=== PATIENT | male | born 1960 | race Caucasian/White ===

== ENCOUNTER 2019-01-13 11:37 | Inpatient (IN) | payer OTHER ==
[~2019-01-13] VITALS: Ht 182.9 cm; Wt 110.9 kg
[~2019-01-13 11:37] MED LIST: ALTACE10 MG PO; ASPIR-LOW81 MG PO; CHLORDIAZEPOXID25 MG PO; COREG25 MG PO; EZETIMIBE10 MG PO; FISH OIL 1,0001 EAC5 PO; FLONASE ALLERG9.9 ML NAS; FOLIC ACID1 MG PO; ISOSORBIDE MONO30 MG PO; K-PHOS NEUTRAL T1 EA PO; ONE DAILY MAXI1 EAC1 PO; PRAVASTATIN SOD80 MG PO; PRILOSEC OTC20 MG PO; THIAMINE HCL100 MG PO; TRICOR145 MG PO; VITAMIN D35000 UNIT PO; ZYRTEC10 MG PO
[2019-01-13] MEDS ORDERED: NALTREXONE HCL50 MG PO (11:49)
[2019-01-13] MEDS ORDERED: ULORIC40 MG PO (11:50)
[2019-01-13] MEDS ORDERED: FISH OIL 1,0001 EAC2 (11:51)
[2019-01-13] MEDS ORDERED: DICLOFENAC POTA50 MG PO (11:52)
--- NOTE | 2019-01-13 15:39 | NUR ---
PATIENT ARRIVES TO CCU ON STRETCHER FROM ER AT 1450. PT IS VERY PAINFUL BUT ABLE TO MOVE TO CCU BED. PT STATES PAIN IS STILL OUT OF CONTROL, RATING IT A 8/10. PT STATES THE PAIN MEDICATION GIVEN THUS FAR HAS NOT TOUCHED HIS PAIN. PT HAS BEEN RECEIVING IV MORPHINE IN THE ER, WELL BENADRYL, TORADOL, INAPSINE, AND ATIVAN. BLOOD PRESSURES ELEVATED UPON ARRIVAL. PT'S ACCOMPANIES PATIENT INTO ROOM AND PROVIDES HISTORY. 2ND L BOLUS FINISHES. PT HAS YET TO VOID - COUNSELED PATIENT ON NOT WAITING TOO LONNG TO TRY TO VOID. PT INTO BATHROOM WITH SBA BUT UNABLE TO VOID. BLADDER SCANNED FOR 350 ML. IVF NOW INFUSING AT 200 ML/HR. PT ORIENTED TO ROOM AND CALL LIGHT. CONTINUE TO MONITOR.
--- NOTE | 2019-01-13 15:43 | NUR ---
PATIENT USES CALL LIGHT AND STATES HIS PAIN IS STILL OUT OF CONTROL. PT STATES, "IT HASN'T TOUCHED MY PAIN YET." WILL CALL DR. AMARO TO DISCUSS PAIN CONTROL.
--- NOTE | 2019-01-13 15:52 | NUR ---
DR. AMARO CALLED REGARDING PATIENT'S PAIN. NEW ORDER REC'D FOR IV DILAUDID. PT INFORMED.
--- NOTE | 2019-01-13 16:05 | NUR ---
PATIENT GIVEN WARMING PAD AND INSTRUCTED ON HOW TO USE IT. PT STATES HIS PAIN GOAL IS TO HAVE IT DOWN TO A 4/10. PT RESTING NOW, CALL LIGHT WITHIN REACH.
--- NOTE | 2019-01-13 17:09 | NUR ---
PATIENT CALLS AND USES CALL LIGHT AND STATES HIS PAIN IS STILL OUT OF CONTROL. PT ASKING WHAT ELSE CAN BE DONE. DR. AMARO CALLED AND UPDATED AND REPORTS HE WILL COME SEE PATIENT HIMSELF SOON. PT UPDATED ON THIS.
--- NOTE | 2019-01-13 17:20 | NUR ---
DR. AMARO IN TO SEE PATIENT. NEW ORDERS TO BE PLACED FOR PATIENT'S PAIN MANAGEMENT. WILL BRING PATIENT PAIN MEDICAITON IN SOON POSSIBLE.
--- NOTE | 2019-01-13 17:25 | NUR ---
IN FOR PTS INITIAL CASE MANAGEMENT ASSESSMENT. PT DENIES NEEDS AT HOME. PT IS VISIBLY UPSET WITH NURSING STAFF, CURRENTLY EXPERIENCING PAIN AND CCU NURSES ARE WORKING ON MEDICATING.
--- NOTE | 2019-01-13 18:08 | NUR ---
PATIENT RESTING IN ROOM WITH EYES CLOSED BUT AWAKENS EASILY TO RN ENTERING ROOM. PT STATES HIS PAIN IS STILL JUST SEVERE. RR 16, SP02 98% ON ROOM AIR. HR IN THE 60s CURRENTLY. MORE PAIN MEDICATION TO BE GIVEN SOON ELIGIBLE. PT RECEIVING IV MAG AND IV THIAMINE.
--- NOTE | 2019-01-13 18:53 | NUR ---
PATIENT APPEARS TO BE SLEEPING WITH LIGHT SNORING HEARD FROM PATIENT'S DOORWAY. SP02 IS 96% ON ROOM AIR, RR 20. EVEN AND UNLABORED BREATHING. IVF CONTINUE AT 200 ML/HR.
--- NOTE | 2019-01-13 19:20 | NUR ---
PATIENT ATTEMPTED TO VOID AGAIN BUT NOT ABLE TO. BLADDER SCANNED FOR 75 ML. PT STATES THIS LAST DOSE OF PAIN MEDICATION "TOOK THE EDGE OFF AND HELPED ME RELAX A LITTLE." PT NOW BACK IN BED RESTING. REPORT TO NURSES AIDE.
--- NOTE | 2019-01-13 19:41 | NUR ---
REPORT RECEIVED FROM RAMONITA MERCHANT. IN TO CHECK ON PT. PT REPORTS "I FEEL DROWSY, BUT IM HURTING,", REQUESTS PAIN MED IF POSSIBLE.
--- NOTE | 2019-01-13 19:55 | NUR ---
2MG IV DILAUDID GIVEN FOR 10/06. PT RESTING WITH EYES CLOSED, DOES NOT NOTICE WHEN PAIN MED GIVEN, WAKES UP ASKING "WERE YOU GOING TO GIVE ME THE PAIN MEDICINE?". TOLD PT THE MED WAS GIVEN AND HE CLOSED EYES AND WENT BACK TO SLEEP. RESTING HR 80'S, RR 18 AND SPO2 ON ROOM AIR IS 96%.
--- NOTE | 2019-01-13 20:32 | NUR ---
DR AMARO ON UNIT, GIVEN UPDATE REGARDING PAIN MED, VS AND URINE OUTPUT, WILL CONT TO MONITOR.
--- NOTE | 2019-01-13 20:50 | NUR ---
CALLS TO TRY TO VOID, UP TO BS TO USE URINAL BUT UNABLE TO GO. WILL TRY AGAIN LATER. REQUESTS MORE PAIN MED.
--- NOTE | 2019-01-13 21:40 | NUR ---
PT IN TO BR TO SIT AND TOILET. WAS ABLE TO VOID 75ML DARK URINE. HR STEADY WHILE UP. BACK TO BED, REQUESTING PAIN MED FOR 8/10 ABD PAIN.
--- NOTE | 2019-01-13 22:15 | NUR ---
2MG IVDILAUDID GIVEN FOR 8/10 PAIN PER REQUEST.
--- NOTE | 2019-01-14 00:25 | NUR ---
SBP'S CONT TO BE ABOVE 185MMHG, PRN ENALAPRIL GIVEN 0.625MG IV WITH 2MG IV DILAUDID. PT APPERED TO BE SLEEPING ON ENTERING ROOM, SNORING LIGHTLY. AWOKE WITH GIVING MEDS AND STATES PAIN IS NOT GETTING ANY BETTER AND HE IS NOT ABLE TO REST. WILL CONT TO MONITOR.
--- NOTE | 2019-01-14 00:42 | NUR ---
BP DOWN TO 181/100 CONT TO MONITOR. PT APPEARS TO BE SLEEPING/RESTFUL. RR 18 HR 80'S
--- NOTE | 2019-01-14 01:00 | NUR ---
UP TO BR TO VOID 100ML DARK URINE AND BACK TO BED REQUESTING MORE PAIN MEDICATION. STATES HE DOESN'T FEEL LIKE IT IS WORKING ALTHOUGH HE RESTS BETWEEN DOSES. 2MG IV DILAUDID GIVEN WITH 1MG IV ATIVAN.
--- NOTE | 2019-01-14 02:15 | NUR ---
PT STATES LAST DOSE OF PAIN MED "TOOK THE EDGE OFF". 2MG IV DILAUDID GIVEN, PT RESTING WITH EYES CLOSED.
--- NOTE | 2019-01-14 05:22 | NUR ---
LAB IN TO DRAW, PT BACK TO SLEEP AFTER DOES NOT REQUEST PAIN MEDS.
--- NOTE | 2019-01-14 05:40 | NUR ---
UP TO BR TO VOID 150ML DARK NINOSKA URINE, PT BACK TO BED. HR UP TO 120'S WHEN UP THIS TIME AND BACK DOWN TO 80-90'S ONCE IN BED. REQUESTS PAIN MEDICINE, STATES HE THINKS THE PAIN CONTROL HAS BEEN BETTER THE LAST COUPLE OF HOURS. 2MG IV DILAUDID GIVEN. ONCE BACK IN BED PT APPEARS RESTFUL WITH LIGHT SNORING QUICKLY. WILL CONT TO MONITOR.
--- NOTE | 2019-01-14 06:55 | NUR ---
PT CALLS TO REQUEST MORE PAIN MEDICINE. 2MG IV DILAUDID GIVEN. RATES PAIN 7/10 NOW THE LOWEST OF THE NIGHT.
--- NOTE | 2019-01-14 07:38 | NUR ---
PATIENT SLEEPING UPON ENTERING ROOM THIS AM TO CHANGE IVF. REPORT FROM CARDIOVASCULAR RADIOLOGIC TECHNOLOGIST RECEIVED. PATIENT AWAKENS EASILY AND STATES, "I FEEL MAYBE A LITTLE BETTER, A LITTLE GROGGY, BUT MY PAIN IS SLIGHTLY BETTER. I GIVE IT A 7/10 AT THIS TIME." HEAT PACK REMAINS IN PLACE AND PATIENT USING THIS WELL. SP02 95% AND RR 19, EVEN AND UNLABORED. HR IN THE 80s. FULL ASSESSMENT DEFFERED UNTIL LATER THIS AM.
--- NOTE | 2019-01-14 09:16 | NUR ---
PATIENT SLEEPING AND MORE DROWSY THAN HE HAS BEEN. PT STILL AWAKENS EASILY TO V OICE, BUT IS FALLING ASLEEP QUICKER WHEN RN IN ROOM. HEAT PACK REMAINS IN PLACE. SP02 95% ON ROOM AIR AND RR 21.
--- NOTE | 2019-01-14 10:00 | NUR ---
PATIENT'S IN ROOM AT THIS TIME. PT'S REPORTS THAT WHEN SHE WENT HOME YESTERDAY, SHE FOUND AN EMPTY HALF GALLON BOTTLE, INSTEAD OF A PINT THE PATIENT HAD STATED HE HAD ONLY DRANK A PINT OVER MONDAY AND MONDAY. PT'S ALSO REQUESTING TO TALK TO THE MD ABOUT A DIFFERENT MEDICATION TO BE PRESCRIBED UPON DISCHARGE TO TREAT HIS ALCOHOL CRAVINGS VS THE NALTREXONE THAT HE HAS BEEN ON FOR 2 WEEKS. DISCUSSED WITH HER THAT THIS WILL LIKELY NEED TO BE PRESCRIBED FROM PATIENT'S PCP, BUT WILL STILL DISCUSS WITH DR. AMARO. PT REMAINS SLEEPY, OPENS EYES BRIEFLY BUT DOES NOT STAY AWAKE FOR LONG. PT STILL HAS NOT RECIEVED ANY PAIN MEDICATION SINCE 0700. WILL CONTINUE TO MONITOR. CONT PULSE OX REMAINS ON AND CURRENTLY 95% ON ROOM AIR WITH RR OF 22.
[2019-01-14] MEDS ORDERED: CYCLOBENZAPRINE5 MG PO (10:18)
[2019-01-14] MEDS ORDERED: NORCO 5-325 TA1 EACH PO (10:19)
--- NOTE | 2019-01-14 10:26 | NUR ---
PATIENT USES CALL LIGHT AT AROUND 1010 AND STATES HE IS READY FOR PAIN MEDICATION, THAT HIS PAIN IS BACK TO AN 8/10. PT DOES STATE THAT HE WAS FINALLY ABLE TO REST AND SLEEP, AND HIS PAIN LEVEL WAS DOWN TO A 6/10 FOR A LITTLE WHILE. PT GIVEN IV TYLENOL AT THIS TIME. WILL REASSESS NEED FOR IV DILAUDID IN APPROX 30 MINUTES.
--- NOTE | 2019-01-14 11:08 | NUR ---
PATIENT USES CALL LIGHT AND GETS UP TO THE BATHROOM TO VOID. PT STATES THAT AFTER THAT IV TYLENOL, THAT WAS THE BEST HE HAS FELT SO FAR. PT RATES HIS PAIN ALL THE WAY DOWN TO A 3-4/10 DURING THAT TIME. PT NOW BACK IN BED RESTING AND DENIES FURTHER NEEDS. CONTINUE TO MONITOR. PT'S IN ROOM.
--- NOTE | 2019-01-14 12:06 | NUR ---
PATIENT REQUESTING PAIN MEDICATION AT THIS TIME. PT GIVEN DILAUDID FOR THE FIRST TIME THIS SHIFT. PT RESTING AGAIN NOW. ASSESSMENT COMPLETE AND UNCHANGED FROM THIS AM. PT'S REMAINS IN ROOM.
--- NOTE | 2019-01-14 14:04 | NUR ---
PATIENT UP TO BATHROOM TO VOID. PT STEADY ON FEET. NO SIGNS OF ETOH W/D AND CIWA REMAINS 0. CONTINUE TO MONITOR.
--- NOTE | 2019-01-14 14:53 | NUR ---
PATIENT UP TO BATHROOM TO ATTEMPT TO HAVE A BM BUT UNABLE TO. PT VOIDS 25 ML. IVF TURNED DOWN TO 150 ML/HR. PHARMACIST IN TO SEE PATIENT AT THIS TIME. CONTINUE TO MONITOR.
[2019-01-14] MEDS ORDERED: IRON325 M1 PO (15:03)
--- NOTE | 2019-01-14 15:10 | NUR ---
DR. AMARO IN TO SEE PATIENT. PT REPORTS FEELING BETTER THIS AFTERNOON THAN HE HAS FELT THIS WHOLE TIME AND PAIN IS WELL CONTROLLED WHILE HE LAYS IN BED, BUT SOON HE USES HIS CORE MUSCLES AGAIN, THE PAIN RETURNS BUT NOT SEVERE.
--- NOTE | 2019-01-14 15:16 | NUR ---
Medications reconciled using pharmacy records and patient interview
--- NOTE | 2019-01-14 15:52 | NUR ---
PATIENT UP TO SHOWER AND AMBULATES IN [place]ON[place], TOLERATES THIS WELL. PATIENT TAKEN OFF MONITOR AND IVF FOR SHOWER. PT STEADY ON HIS FEET. PT TO REMAIN NPO UNTIL AROUND 1700 AND THEN IT WILL BE RE-EVALUATED IF PATIENT CAN HAVE SMALL SIPS OF WATER OR ICE CHIPS PER DR. AMARO.
--- NOTE | 2019-01-14 16:26 | NUR ---
PATIENT VOIDED 50 ML AND THEN BLADDER SCANNED FOR 235 ML. PT STATES HE DOESN'T FEEL LIKE HE HAS BEEN COMPLETELY EMPTYING HIS BLADDER EVEN AT HOME. WILL CONTINUE TO MO EDOR.
--- NOTE | 2019-01-14 17:47 | NUR ---
PATIENT NOTED TO BE SIPPIN ON WATER ON HIS OWN IN ROOM. DISCUSSED WITH MD AND ORDER REC'D TO ALLOW PT TO HAVE CLEAR LIQUIDS NOW, BUT TO GO SLOWLY. DISCUSSED THIS WITH PATIENT. PATIENT STATES HE UNDERSTANDS REASONING FOR GOING SLOW AND IS JUST VERY THIRSTY OVERALL. FRESH ICE WATER PROVIDED FOR PATIENT.
--- NOTE | 2019-01-14 18:13 | NUR ---
In and spoke with pt. and . Plans on discharging to home when okayed by Denies needs at this time. feels they can safely dc to home. Pt currently in couseling for alcohol.
--- NOTE | 2019-01-14 19:31 | NUR ---
REPORT RECEIVED FROM RAMONITA MERCHANT. PT AWAKE IN BED, TAKING ON PHONE. HR 80'S.
--- NOTE | 2019-01-14 20:04 | NUR ---
PT CALLS TO REQUEST HEAT BE TURNED DOWN. ASSESSMENT VS DONE. TEMP 99.3 WILL MONITOR. STATES IF HE IS STILL RIGHT NOW HE HAS NO PAIN BUT "IF I MOVE AROUND AND STUFF ILL HAVE SOME CRAMPING". DENIES NEED FOR PAIN MED AND WILL CALL IF HE WANTS SOME. HAD TRIED SOME SIPS OF WATER AND STATES "IT MADE ME NERVOUS, SO I THINK ILL HOLD OFF UNTIL MORNING".
--- NOTE | 2019-01-14 22:00 | NUR ---
PT TRANSFERED FROM CCU TO ROOM 124 VIA BED. A/O. REQUESTED SOMETHING FOR PAIN. MEDICATION ADMISTERED.
--- NOTE | 2019-01-15 | NUR ---
PT ARRIVED ON FLOOR AT SOME POINT AFTER 2200. LINE INSPECTOR SETTLED PT INTO ROOM. PAIN IS WELL CONTROLLED WITH PRN TORADOL AND IV TYLENOL SO FAR.
--- NOTE | 2019-01-15 02:00 | NUR ---
PT IS AAOX4, CIWA IS A 0 AT THIS TIME. PT DENIES PAIN WHEN LAYING IN BED. PAIN WITH MOVEMENT THOUGH. PT DENIES SOB, ABD SOUNDS PRESENT, ABD IS TENDER TO TOUCH BUT LESS DISTENDED STATED BY PT. NO PERIPHERAL EDEMA NOTED. URINE OUTPUT STILL INADEQUATE SO FAR. WILL CONTINUE TO MONITOR.
--- NOTE | 2019-01-15 06:40 | NUR ---
INADEQUATE URINE OUTPUT WAS THE ONLY ISSUE NOTED THIS SHIFT. PAIN IS WELL CONTROLLED WITH TORADOL/IV TYLENOL, ABD IS LESS DISTENDED STATED BY PT. PT ONLY HAS PAIN WITH MOVING AROUND. PT HOWEVER STILL NOT ABLE TO TOLERATE ANY NOTABLE AMOUNTS OF CLEAR LIQUIDS. BP'S ARE ELEVATED AND THIS AM PT HAS A TEMP OF 99.3 F.
--- NOTE | 2019-01-15 09:26 | NUR ---
PT SITTING UP IN BED WATCHING TV. ALERT AND ORIENTED TO ALL. PT REPORTS 4/10 LOWER ABD PAIN THAT RADIATES UP ALONG BILAT "OBLIQUES" PER PT. STATES IT FEELS "LIKE I DID A LOT OF SIT UPS". DENIES NAUSEA. PT REQUESTED TO TRY SOME ICE WATER THIS MORNING, PT SIPPING NOW, BOBY WELL. NOTED THAT PT HAS HAD VERY LOW URINE OUTPUT, URINE IS VERY CONCENTRATED. IVF INFUSING WNL, RIGHT HAND IV SITE CDI, FLUSHES EASILY. CALL LIGHT WITHIN REACH.
--- NOTE | 2019-01-15 10:00 | NUR ---
In and spoke with pt and . He is drinking ice water and states he may try jello today. States he is feeling somewhat better today and denies any concerns for him to go home when he is discharged.
--- NOTE | 2019-01-15 10:54 | NUR ---
NEW BAG IVF HUNG. PT SITTING UP WATCHING TV. AT BEDSIDE. PT REPORTS ABD "DISCOMFORT" BUT DENIES NEED FOR PAIN MEDICATION AT THIS TIME. DRINKING ICE WATER, CONT TO BOBY WELL. CALL LIGHT WITHIN REACH.
--- NOTE | 2019-01-15 12:00 | NUR ---
PATIENT SITTING UP IN RECLINER. HANDS AND FACE WASHED. LINENS CHANGED. PATIENT WOULD LIKE TO SHOWER LATER TONIGHT BEFORE HE GOES TO BED. FRESH ICE WATER GIVEN. CALL BUTTON IN REACH. NO OTHER NEEDS AT THIS TIME.
--- NOTE | 2019-01-15 12:39 | NUR ---
URINE TEA COLOR
--- NOTE | 2019-01-15 13:15 | NUR ---
PT REQUESTING PAIN MEDICATION. STATES HE SAT UP IN THE CHAIR AND ATE SOME JELLO AND BEGAN HAVING 8/10 PAIN. AMB INDEPENDENTLY BACK TO BED. REPORTS ONCE BACK TO BED AND K PAD ON ABD THAT PAIN DECREASED TO 4/10. MEDICATED WITH PRN TORADOL. AT BEDSIDE. CALL LIGHT WITHIN REACH.
--- NOTE | 2019-01-15 15:02 | NUR ---
PT CONT TO HAVE CONCENTRATED TEA COLORED URINE WITH LOW URINE OUTPUT. NOTIFIED DR. AMARO. NO SIGNS OF PERIPHERAL EDEMA, LUNGS CLEAR IN THE UPPER LOBES, DIMINISHED IN THE BASES. PT REPORTS "BLOATING" SENSATION OF ABD BUT DENIES SOB OR OTHER CONCERN. FLUID BOLUS ORDERED.
--- NOTE | 2019-01-15 17:29 | NUR ---
PT VOIDED 100ML OF NINOSKA URINE. POST VOID RESIDUAL PER DR. AMARO ONLY MEASURED 4ML. PT SITTING UP IN BED, AWAKE AND ALERT. AT BEDSIDE. PT DENIES NEEDS OR CONCERNS AT THIS TIME. CALL LIGHT WITHIN REACH.
--- NOTE | 2019-01-15 18:00 | NUR ---
PT BP ELEVATED AT 172/97 AND 182/97, HR 79, O2 SAT 96%, RR 18, TEMP 99.7. PT REPORTS INCREASED DISCOMFORT AND DISTENTION OF ABD, MILD SOB. LUNGS CLEAR, DIMINISHED IN THE BASES, UNCHANGED FROM THIS AM. NO PERIPHERAL EDEMA NOTED. PT REPORTS 7/10 ABD PAIN. WILL MEDICATE WITH TYLENOL. NOTIFIED DR. AMARO, NEW ORDERS WRITTEN. PT GIVEN I.S. AND EDUCATED ON USE. PT DEMONSTRATED PROPER USE. PT CONT TO BOBY WATER WELL. CALL LIGHT WITHIN REACH.
--- NOTE | 2019-01-16 01:10 | NUR ---
PT IS SLEEPING. PT EARLIER VOIDED 350MLS. URINE STILL CONCENTRATED.
--- NOTE | 2019-01-16 06:04 | NUR ---
PT HAD AN UNEVENTFUL NIGHT. PT SLEPT ALL NIGHT. ALL LOBES ARE CLEAR, ABD SOUNDS ARE PRESENT, ABD IS FIRM TO TOUCH. PT DID NOT HAVE ANY NAUSEA ALL NIGHT SO FAR AND ONLY NEEDED PRN TORADOL X1. URINE OUTPUT AT 0200 WAS 350MLS. BP WAS ELEVATED AT START OF SHIFT AND SO WAS HIS TEMP SLIGHTLY.AM V/S NOT TAKEN YET. NO NEW CONCERNS NOTED SO FAR.
--- NOTE | 2019-01-16 07:59 | NUR ---
0735: Report received from Celsa MERCHANT. Pt sitting up in his bed and he states he is doing ok at this time. Call burnett within reach.
--- NOTE | 2019-01-16 09:20 | NUR ---
PT STATES HIS ABD PAIN IS UNDER CONTROL RATED AT A 5/10 AT THIS TIME. HE STATES THE WARM COMPRESS HELPS WITH THE DISCOMFORT BUT THAT IT ALSO INCREASES WITH MOVEMENT. PT NOW EATING HIS CLEAR LIQUID BREAKFAST AT THIS TIME. HE DENIES ANY OTHER PROBLEMS AT THIS TIME.
--- NOTE | 2019-01-16 10:00 | NUR ---
PATIENT RESTING IN BED. IN ROOM. VITAL SIGNS AND I&O DONE. HIGH SYSTOLIC BLOOD PRESSURE AND LOW OUTPUT. RN NOTIFIED. CALL LIGHT WITHIN REACH. NO OTHER NEEDS AT THIS TIME
--- NOTE | 2019-01-16 10:59 | NUR ---
PT RESTING IN HIS BED AND STATES HIS ABD IS A 4/10 WHICH IS ACCEPTABLE TO HIM. HE DENIES ANY NAUSEA AND HE TOLERATED HIS BREAKFAST AND SINCE HAD EATEN AN APPLE SAUCE WHICH NO CHANGE TO HIS ABD DISCOMFORT. PT DID AMBULATE TO THE BR AND HAD A BM WHICH ALSO DID NOT CHANGE HIS ABD PAIN AT ALL.
[2019-01-16] MEDS ORDERED: OXYCODONE HCL5 MG PO (13:06)
[2019-01-16] MEDS ORDERED: POLYETHYLENE GL17 GM PO (13:07)
--- NOTE | 2019-01-16 13:41 | NUR ---
PATIENT SITTING UP IN BED. VITAL SIGNS AND I&O DONE. CALL LIGHT WITHIN REACH. NO OTHER NEEDS AT THIS TIME
--- NOTE | 2019-01-16 15:20 | NUR ---
PT STATES HIS PAIN REMAINS UNCHANGED AT A 6/10 WHICH IS UNCHANGED BUT REQUESTED SOMETHING FOR IT. SEE EMAR. PT DENIES ANY OTHER PROBLEMS.
--- NOTE | 2019-01-16 15:48 | NUR ---
DC INSTRUCTIONS GIVEN BOTH VERBAL AND WRITTEN WITH THE PT STATING UNDERSTANDING. PT STATES HIS ABD PAIN IS NOW VERY ACCEPTABLE AT A 3/10. PT DENIES ANY NEW PROBLEMS AT THIS TIME.
--- NOTE | 2019-01-16 16:29 | NUR ---
Pt states his abd pain is a 3 which is acceptable to him, he denies any other problems. Pt ate a regular diet for his lunch and he states his abd pain was unchanged.
== END 2019-01-16 17:30 | disposition home or self-care (01) | DRG 440 ==
LOC: ED 11:37 → CCU 14:03 → MS 14:03
PROVIDERS: ADMIT Internal Medicine
DX: K85.20 Alcohol induced acute pancreatitis without necrosis or infection (principal); I10 Essential (primary) hypertension; I25.10 Atherosclerotic heart disease of native coronary artery without angina pectoris; F10.20 Alcohol dependence, uncomplicated; E78.5 Hyperlipidemia, unspecified; K21.9 Gastro-esophageal reflux disease without esophagitis; E79.0 Hyperuricemia without signs of inflammatory arthritis and tophaceous disease; Z79.1 Long term (current) use of non-steroidal anti-inflammatories (NSAID); Z79.82 Long term (current) use of aspirin; Z79.51 Long term (current) use of inhaled steroids; Z79.899 Other long term (current) drug therapy
CPT/HCPCS: 36415; 51798; 74177; 80048; 80053; 83690; 83735; 85025; 96361; 99285-25; C9113; J0131; J1170; J1200; J1650; J1790; J1885; J2060; J2270; J3411; J3475; J3480; J7030; J7120; J7121; Q9967